=== PATIENT | male | born 1955 | race Two or more races ===

== ENCOUNTER 2022-04-30 06:24 | Emergency (ER) | payer OTHER ==
[~2022-04-30] VITALS: Ht 182.9 cm; Wt 119.1 kg
[~2022-04-30 06:24] MED LIST: AMLO-258 PO; TRAZ-257 PO
[2022-04-30 10:21] VITALS: BP 134/71
[2022-04-30] MEDS ORDERED: AMOX500C2 PO (12:21)
== END 2022-04-30 12:27 | disposition home or self-care (01) ==
LOC: EMS 06:25
DX: I88.9 Nonspecific lymphadenitis, unspecified (principal); I10 Essential (primary) hypertension
CPT/HCPCS: 70490; 99284; Z7502

== ENCOUNTER 2024-02-04 20:27 | Emergency (ER) | payer OTHER ==
[~2024-02-04] VITALS: Ht 185.4 cm; Wt 120.0 kg
[~2024-02-04 20:27] MED LIST changes: +AMOX500C2 PO
[2024-02-04 21:11] LABS: BASOPHILS % (AUTO) 1.4 % (0.0-2.0); EOSINOPHILS % (AUTO) 2.6 % (1.0-6.0); HEMATOCRIT 44.2 % (41-53); HEMOGLOBIN 14.5 g/dL (13.5-17.5); LYMPHOCYTES # (AUTO) 2.9 K/uL (1.0-4.8); LYMPHOCYTES % (AUTO) 26.3 % (22.0-44.0); MEAN CORPUSCULAR HEMOGLOBIN 28.2 pg (26.0-34.0); MEAN CORPUSCULAR HGB CONC 32.8 G/dL (31.0-37.0); MEAN CORPUSCULAR VOLUME 86 fL (80-100); MONOCYTES # (AUTO) 1.1 K/uL (0.1-1.0); MONOCYTES % (AUTO) 9.8 % (2.0-9.0); NEUTROPHILS # (AUTO) 6.7 K/uL (1.8-7.7); NEUTROPHILS % (AUTO) 59.9 % (40.0-70.0); PLATELET COUNT (AUTO) 198 K/uL (150-450); RED BLOOD CELL COUNT(AUTO) 5.14 MIL/uL (4.50-5.90); RED CELL DISTRIBUTION WIDTH 15.4 % (11.5-14.5); WHITE BLOOD COUNT (AUTO) 11.2 K/uL (4.5-11.0)
[2024-02-04 21:21] LABS: ANION GAP 9 mmol/L (8-16); CALCIUM, TOTAL 9.2 mg/dL (8.8-10.5); CARBON DIOXIDE 27 mmol/L (22-29); CHLORIDE 102 mmol/L (98-107); CREATININE 1.06 mg/dL (0.60-1.30); GLOMERULAR FILTR. RATE CALC > 60 mL/min (>60); GLUCOSE,RANDOM 93 mg/dL (70-110); POTASSIUM 3.8 mmol/L (3.5-5.1); SODIUM SERUM 138 mmol/L (136-145); UREA NITROGEN, BLOOD 18 mg/dL (7-18)
[2024-02-04 21:26] LABS: ALANINE AMINOTRANSFERASE 15 U/L (12-78); ALBUMIN 3.7 g/dL (3.4-5.0); ALKALINE PHOSPHATASE 81 U/L (46-116); ASPARTATE AMINOTRANSFERASE 14 U/L (15-37); BILIRUBIN,TOTAL 0.6 mg/dL (0.1-1.0); LIPASE 51 U/L (16-77); TOTAL PROTEIN, SERUM 7.7 g/dL (6.4-8.2); TROPONIN I-HIGH SENSITIVITY 20 ng/L (<76)
[2024-02-04 21:58] LABS: APPEARANCE,URINE CLEAR (CLEAR); BILIRUBIN,URINE NEGATIVE (NEGATIVE); COLOR,URINE YELLOW (YELLOW); GLUCOSE, URINE (UA) NEGATIVE (NEGATIVE); KETONES,URINE NEGATIVE (NEGATIVE); LEUKOCYTE ESTERASE ,URINE NEGATIVE (NEGATIVE); NITRATE,URINE NEGATIVE (NEGATIVE); OCCULT BLOOD,URINE NEGATIVE (NEGATIVE); PH,URINE 5.5 (5.0-8.0); PROTEIN,URINE TRACE mg/dL (NEGATIVE); SPECIFIC GRAVITIY, URINE 1.035 (1.003-1.030); UROBILINOGEN,URINE <=1.0 mg/dL (<=1.0)
[2024-02-04] MEDS ORDERED: SODIUM CHLORIDE 0.9% 100 ML ONE (23:13)
[2024-02-04] MEDS ORDERED: IOHEXOL 350 MG/ML 100 ML VIAL ONE (23:14)
[2024-02-04] MEDS: SODIUM CHLORIDE 0.9% 1,000 ML IV ONE (23:35)
[2024-02-04] MEDS: ONDANSETRON HCL 4 MG/2 ML VIAL IVP ONE (23:37)
[2024-02-04 23:55] LABS: TROPONIN I-HIGH SENSITIVITY 19 ng/L (<76)
[2024-02-05] MEDS: MORPHINE SULFATE 2 MG/ML SYRINGE IVP ONE (00:46)
[2024-02-05 03:00] VITALS: BP 128/78; PULSE 80; RESP 18; TEMP 98.4
[2024-02-05] MEDS ORDERED: OMEP20 PO (03:25)
[2024-02-05] MEDS ORDERED: MAG30ORA11 PO (03:25)
[2024-02-05] MEDS ORDERED: ACET-66 PO (03:25)
== END 2024-02-05 03:40 | disposition home or self-care (01) ==
LOC: EMS 20:27
DX: R10.13 Epigastric pain (principal); K52.9 Noninfective gastroenteritis and colitis, unspecified; I10 Essential (primary) hypertension; F17.210 Nicotine dependence, cigarettes, uncomplicated
CPT/HCPCS: 99285; 74177; 96374; 71045; 96361; 80053; 81003; 83690; 84484; 85025; 36415; 93005; J2405; Q9967; J7030; J7050